=== PATIENT | female | born 1990 | race Hispanic/Latino ===

== ENCOUNTER 2017-02-15 01:02 | Emergency (ER) | payer SELFPAY ==
[2017-02-15] MEDS ORDERED: IBUPROFEN 800 MG TAB ONE (01:46)
== END 2017-02-15 02:52 | disposition home or self-care (01) ==
LOC: EDH 01:02
DX: G89.18 Other acute postprocedural pain (principal); Z88.6 Allergy status to analgesic agent; Z72.0 Tobacco use; Z98.890 Other specified postprocedural states
CPT/HCPCS: 73590; 73610